=== PATIENT | female | born 1985 | race Caucasian/White ===

== ENCOUNTER → 2021-02-23 | Outpatient (CLI) | payer MEDICARE, MEDICAID ==
[~2021-02-23] VITALS: Ht 167.6 cm; Wt 197.0 kg
[~2021-02-23] MED LIST: ALBU1.25 INH; ALBU17AE23; ALBU17AE3 IH; ALBU8.5H2 IH; ALPR1TAB PO; ALPR1TAB2 PO; AMIT25TA9; AMOX-355 PO; DAPA10TA PO; MELO-195 PO; METF-397 PO; MTF500T; NAPR-1070 PO; PARO40TA3 PO; PARO40TA47; PRD20T PO; SEMA0.25 SQ; SPIR100T4 PO; SULF1TAB23 PO; TRM50T PO; VANCOMYCIN IV
== END | disposition home or self-care (01) ==
LOC: PREOP 05:43
PROVIDERS: ATTEND Internal Medicine
DX: Z01.818 Encounter for other preprocedural examination (principal)

== ENCOUNTER 2021-02-24 10:19 | Day surgery (SDC) | payer MEDICARE, MEDICAID ==
--- NOTE | 2021-02-23 14:52 | HISTORY AND PHYSICAL ---
DATE OF SERVICE: COLONOSCOPY HISTORY AND PHYSICAL HISTORY OF PRESENT ILLNESS: The patient is a 36-year-old white female who reports after some initial constipation 2 weeks ago, she had some bright red blood per rectum. She denied any associated pain with defecation. She then has gone on to develop diarrhea 4 to 5 loose stools per day without night sweats, chills or fever. It is one bloody dark to bright red and painless. She does report a past history of endometriosis, underwent endometrial ablation 10 years ago and has not had any vaginal bleeding since. She reports mild bilateral lower quadrant abdominal pain. There has been no travel history. PHYSICAL EXAMINATION: Exam is pertinent for morbid obesity and hyperlipidemia with no known history for vascular disease. She was recently diagnosed with type 2 diabetes. I had performed a previous colonoscopy on her in 2013, at which time she had several hyperplastic polyps of the anal verge, possible causes of bleeding that were removed. Her weight is down 60 pounds since 2013 when she weighed 503 pounds, currently at 443 by our office scales. PAST SURGICAL HISTORY: Pertinent for the endometrial ablation. FAMILY HISTORY: She is not aware of any family history for colon cancer or GI tract malignancy. SOCIAL HISTORY: She reports no past smoking or drinking history. REVIEW OF SYSTEMS: CONSTITUTIONAL: Denies night sweats, chills or fever and denies any recent change in weight. GASTROINTESTINAL: As noted in the HPI. PULMONARY: Denies cough, shortness of breath or wheezing. CARDIOVASCULAR: Denies orthopnea, PND, pedal edema or syncope. PHYSICAL EXAMINATION: GENERAL: Reveals a white female, overweight, in no acute distress, anxious. VITAL SIGNS: Blood pressure 130/90. HEENT: Unremarkable. Sclerae nonicteric. CHEST: Clear. CARDIOVASCULAR: Reveals a regular rate and rhythm without significant murmur, S3 or S4. ABDOMEN: Obese, soft, supple. Mild bilateral lower quadrant abdominal pain to palpation is present without rebound or guarding. EXTREMITIES: Reveal no cyanosis, clubbing or edema. ASSESSMENT AND PLAN: For further investigation of bowel habit change with diarrhea and bright red blood per rectum, the patient is being set up for diagnostic colonoscopy on 02/24/2021. Prep instructions and Suprep kit were given and questions answered. I thank you for the referral of this pleasant lady. Job ID: [id number] DocumentID: [id number] Dictated Date: 02/22/2021 17:07:50 Corn Miller Date: 02/22/2021 17:23:23 Dictated By: KIRILL HAYWOOD MD MTDD
[~2021-02-24] VITALS: Ht 167.6 cm; Wt 197.0 kg
[2021-02-24] MEDS ORDERED: LACTATED RINGERS 1,000 ML IV STA (10:33)
[2021-02-24] MEDS ORDERED: LACTATED RINGERS 1,000 ML IV ONE (10:37)
[2021-02-24] MEDS ORDERED: LIDOCAINE JELLY 2% 6 ML SYRINGE MM PRN (10:45)
[2021-02-24 11:00] VITALS: BP 128/77
--- NOTE | 2021-02-24 11:31 | Pre-Op Note & Conscious Sedat ---
Pre-Operative Progress Note H&P Reviewed The H&P was reviewed, patient examined and no changes noted. Date H&P Reviewed: Feb 24, 2021 Time H&P Reviewed: 11:31 Conscious Sedation Pre-Proced ASA Score 3 For ASA 3 and 4: Consider anesthesia and medical clearance. Also, for patients with a history of failed moderate sedation consider anesthesia. Airway Lungs Heart ASA score ASA 1: a normal healthy patient ASA 2: a patient with a mild systemic disease (mid diabetes, controlled hypertension, obesity ASA 3: a patient with a severe systemic disease that limits activity (angina, COPD, prior Myocardial infarction) ASA 4: a patient with an incapacitating disease that is a constant threat to life (CHF, renal failure) ASA 5: a moribund patient not expected to survive 24 hrs. (ruptured aneurysm) ASA 6: a declared brain- patient whose organs are being harvested. For emergent operations, add the letter E after the classification Mallampati Classification Grade 2 Sedation Plan Analgesia, Amnesia, Plan communicated to team members, Discussed options with patient/fam, Discussed risks with patient/fam The patient is an appropriate candidate to undergo the planned procedure, sedation, and anesthesia. The patient immediately re-assessed prior to indication. KIRILL HAYWOOD MD Feb 24, 2021 11:31
[2021-02-24] MEDS ORDERED: PROPOFOL INJECTION 50 ML IV ONE (12:01)
[2021-02-24 12:35] VITALS: BP 117/82
--- NOTE | 2021-02-24 12:35 | Anesthesia-General Post-Op ---
MAC Patient Condition Mental Status/LOC: Same as Preop Cardiovascular: Satisfactory Nausea/Vomiting: Absent Respiratory: Satisfactory Pain: Controlled Complications: Absent Post Op Complications Complications None Follow Up Care/Instructions Patient Instructions None needed. Anesthesiology Discharge Order Discharge Order Patient is doing well, no complaints, stable vital signs, no apparent adverse anesthesia problems. No complications reported per nursing. SHANNAN CASTANON CRNA Feb 24, 2021 12:35
[2021-02-24 12:40] VITALS: BP 121/87
[2021-02-24 13:10] VITALS: BP 113/94
--- NOTE | 2021-02-24 19:20 | OPERATIVE REPORT ---
DATE OF SERVICE: COLONOSCOPY SUMMARY INDICATION FOR THE PROCEDURE: Lower GI bleed. DESCRIPTION OF PROCEDURE: The patient was placed in the left lateral decubitus position. Prior to undergoing colonoscopy, a digital rectal evaluation was performed. There was a rough area in the anal canal at the 12 o'clock position suggesting the possibility of a small fissure. Several grade II internal hemorrhoid complexes were noted with no other abnormalities being appreciated on digital rectal evaluation of the anal canal and distal rectal vault. The colonoscope was then inserted into the rectum and under direct visualization advanced to the cecum. The cecum was identified by identification of the ileocecal valve and cecal strap. Photographic documentation was obtained. A careful inspection was made as the colonoscope was withdrawn. Quality of prep was good. FINDINGS: There were several grade II internal hemorrhoid complexes noted. The rectum was otherwise unremarkable. Present at the rectosigmoid junction was a 6 mm sessile hyperplastic-appearing polyp. It was photographed and biopsied and ablated and submitted for histopathology with no subsequent blood loss. The sigmoid colon, descending colon, splenic flexure, transverse colon, hepatic flexure, ascending colon, and cecum were unremarkable. ASSESSMENT: Questionable small healing anal canal fissure noted at the 12 o'clock position was present in addition to several grade II internal hemorrhoid complexes. One 5 to 6 mm sessile hyperplastic-appearing polyp was noted at the rectosigmoid junction and subsequently biopsied and ablated. There are no other abnormalities noted on today's colonoscopy. The procedure was done at [facility] as the patient's weight is around 440 with a BMI of 70 and was too heavy for [facility]. I thank you for the referral. CC: Irma Batista - requested, unable to deliver. Job ID: [id number] DocumentID: [id number] Dictated Date: 02/24/2021 12:36:40 Financial Planning Adviser Date: 02/24/2021 19:19:47 Dictated By: KIRILL HAYWOOD MD
== END 2021-02-24 13:10 | disposition home or self-care (01) ==
LOC: ENDO 10:19
PROVIDERS: ATTEND Internal Medicine
DX: K63.5 Polyp of colon (principal); K62.1 Rectal polyp; K64.1 Second degree hemorrhoids; K92.2 Gastrointestinal hemorrhage, unspecified; E66.01 Morbid (severe) obesity due to excess calories; J45.909 Unspecified asthma, uncomplicated; E78.5 Hyperlipidemia, unspecified; E11.9 Type 2 diabetes mellitus without complications; F32.A Depression, unspecified; F41.9 Anxiety disorder, unspecified; Z68.45 Body mass index [BMI] 70 or greater, adult; Z79.899 Other long term (current) drug therapy; Z87.891 Personal history of nicotine dependence
CPT/HCPCS: 82947; 88305

== ENCOUNTER 2021-10-18 05:37 | Outpatient (CLI) | payer MEDICARE, MEDICAID ==
[~2021-10-18] VITALS: Ht 167.7 cm; Wt 202.7 kg
[2021-10-19] MEDS ORDERED: ROSU10TA28 PO (11:28)
[2021-10-19] MEDS ORDERED: SPIR100T4 PO (11:28)
[2021-10-19] MEDS ORDERED: NYST15CR TP (11:28)
[2021-10-19] MEDS ORDERED: SEMA2PEN SQ (11:28)
[2021-10-19] MEDS ORDERED: PARO40TA PO (11:28)
== END 2021-10-19 11:32 | disposition home or self-care (01) ==
LOC: PREOP 05:37
PROVIDERS: ATTEND Orthopaedic Surgery
DX: Z01.818 Encounter for other preprocedural examination (principal)

== ENCOUNTER 2022-10-12 12:43 | Emergency (ER) | payer MEDICARE, MEDICAID ==
[~2022-10-12] VITALS: Ht 167.7 cm; Wt 196.4 kg
[~2022-10-12 12:43] MED LIST changes: +NYST15CR35 TP; +PARO-135 PO; +ROSU10TA28 PO; +SEMA2PEN SQ
[2022-10-12 12:52] VITALS: BP 105/77
--- NOTE | 2022-10-12 12:59 | ED Integumentary General ---
General Chief Complaint: Laceration Stated Complaint: RT RING FINGER LACERATION Source: patient Exam Limitations: no limitations History of Present Illness Date Seen by Provider: Oct 12, 2022 Time Seen by Provider: 12:51 Initial Comments Patient is a 37-year-old female who presents to the emergency room with a chief complaint of laceration to the dorsal aspect of the right ring finger off of a "mandolin slicer". Patient states that she cannot recall her last tetanus shot. She endorses significant pain to the finger. No numbness to the fingertip. Intact function. Timing/Duration: just prior to arrival Severity: moderate Location: hands (right ring finger) Possible Cause: other ("Mandolin" slicer) Associated Symptoms: denies symptoms Allergies and Home Medications Allergies Coded Allergies: allopurinol (Verified Allergy, Unknown, RASH, 10/19/21) atorvastatin (Verified Allergy, Unknown, RASH, 10/19/21) egg (Verified Allergy, Unknown, NAUSEA/EMESIS, 10/19/21) Patient Home Medication List Home Medication List Reviewed: Yes Albuterol Sulfate (Albuterol Sulfate) 1.25 Mg/3 Ml Vial.neb, 1.25 MG INH PRN, (Reported) Entered as Reported by: JAMMIE SERVIN on 02/23/21938 Dapagliflozin Propanediol (Farxiga) 10 Mg Tablet, 10 MG PO DAILY, (Reported) Entered as Reported by: JAMMIE SERVIN on 02/23/21938 Metformin HCl (Metformin HCl) 500 Mg Tablet, 500 MG PO BID, (Reported) Entered as Reported by: JAMMIE SERVIN on 02/23/21938 Nystatin (Nystatin) 100,000 Unit/Gram Cream..g., 15 GM TP UD, (Reported) Entered as Reported by: DOROTHEA LEARY on 10/19/211127 Paroxetine HCl (Paxil) 40 Mg Tablet, 40 MG PO DAILY, (Reported) Entered as Reported by: DOROTHEA LEARY on 10/19/211127 Rosuvastatin Calcium (Rosuvastatin Calcium) 10 Mg Tablet, 10 MG PO DAILY, (Reported) Entered as Reported by: DOROTHEA LEARY on 10/19/211127 Semaglutide (Ozempic) Unknown Strength Pen.injctr, Unknown Dose SQ UD, (Reported) Entered as Reported by: DOROTHEA LEARY on 10/19/218 Spironolactone (Spironolactone) 100 Mg Tablet, 100 MG PO BID, (Reported) Entered as Reported by: DOROTHEA LEARY on 10/19/211127 Review of Systems Review of Systems Constitutional: see HPI Respiratory: no symptoms reported Cardiovascular: no symptoms reported Musculoskeletal: no symptoms reported Skin: other (laceration ring finger) All Other Systems Reviewed Negative Unless Noted: Yes Past Ulxzowm-Cehcvf-Vcsobu Hx Immunizations Up To Date Tetanus Booster (TDap): More than 5yrs First/Initial COVID19 Vaccinat: JUNE 2020 Second COVID19 Vaccination Mak: JULY 2020 Seasonal Allergies Seasonal Allergies: Yes Past Medical History Surgeries: Yes (ENDOMETRIAL ABLATION) Respiratory: Yes (ASTHMA) Asthma Cardiac: Yes High Cholesterol Neurological: Yes (depression, anxiety, asbergers syndrome, 2002 CONCUSSION) Concussion Reproductive Disorders: Yes Female Reproductive Disorders: Menstrual Problems Sexually Transmitted Disease: No HIV/AIDS: No Genitourinary: No Gastrointestinal: No Musculoskeletal: Yes (SHOULDER BLADE L FRACTURE) Arthritis, Fractures Endocrine: No Diabetes, Non-Insulin dep HEENT: No Cancer: No Psychosocial: Yes (asbergers) ADD/ADHD, Anxiety, Depression Integumentary: Yes Psoriasis Blood Disorders: No Adverse Reaction/Blood Tranf: No Family Medical History Family history: Diabetes mellitus 19 FATHER Physical Exam Vital Signs Vital Signs - First Documented 10/12/22 12:52 Temp 37.3 Pulse 100 Resp 18 B/P (MAP) 105/77 (86) Pulse Ox 96 O2 Delivery Room Air Capillary Refill : General Appearance: WD/WN, no apparent distress, obese Respiratory: no respiratory distress, no accessory muscle use Gastrointestinal: soft Extremities: normal range of motion, non-tender Neurologic/Psychiatric: alert, normal mood/affect, oriented x 3 Skin: normal color, warm/dry, other (small laceration just under the nail of the right ring finger, triangular in orientation to a point mid finger nail. Nail is still attached. Will leave it as a dressing for the nail bed. No active bleeding.) Progress/Results/Core Measures Results/Orders My Orders Orders - MILA BROWN MD Dipht,Ha(Acell),Tet Adult (Boostrix (10/12/22 13:15) Vital Signs/I&O 10/12/22 12:52 Temp 37.3 Pulse 100 Resp 18 B/P (MAP) 105/77 (86) Pulse Ox 96 O2 Delivery Room Air Departure Impression Primary Impression: Laceration of finger nail bed Qualified Codes: S61.319A - Laceration without foreign body of unspecified finger with damage to nail, initial encounter Disposition: HOME, SELF-CARE Condition: Stable Departure-Patient Inst. Decision time for Depature: 12:59 Referrals: VERONICA LOWE DO (PCP) Primary Care Physician JAVIER LOWE DNP (Family) Primary Care Physician Patient Instructions: Wound Care ED Add. Discharge Instructions: Be sure and wash the finger twice a day with a mild soap and water. You can soak it in a warm soapy water once a day for 3 days as well. Keep a dressing over the tip of the finger for the next 3-5 days to protect the tip - and avoid further pain/injury. Use triple antibiotic ointment under the dressing for only 2-3 days. You will have to gently clip the fingernail as it grows out to prevent it from catching on clothing and other materials. If you notice increased redness/ streaking up the hand or puss-like drainage, please follow up with your primary care physician or return to the Emergency Department for re-evaluation. Do not submerge the finger tip in dish water for at least 7 days to help prevent infection. Work/School Note: Work Release Form Date Seen in the Emergency Department: Oct 12, 2022 Return to Work: Oct 13, 2022 Copy Copies To 1: VERONICA LOWE KATHRYN M MD Oct 12, 2022 12:59
[2022-10-12] MEDS ORDERED: TETANUS,DIPTH,PERTUSS P/F (BOOSTRIX) 0.5 ML VIAL IM ONE (13:15)
== END 2022-10-12 13:25 | disposition home or self-care (01) ==
LOC: EDUNIT# 12:43 → ER 12:45
DX: S61.314A Laceration without foreign body of right ring finger with damage to nail, initial encounter (principal); Z23 Encounter for immunization; W27.4XXA Contact with kitchen utensil, initial encounter
CPT/HCPCS: 90715